=== PATIENT | female | born 1960 | race Caucasian/White ===

== ENCOUNTER 2017-11-17 12:17 | Day surgery (SDC) | payer BC ==
[~2017-11-17 12:17] MED LIST: Buffered Lidocaine 0.9% SYRIN* 5 ML/SYR SYRINGE INTRADERM ONE; Bupivacaine 0.25% SDV* 30 ML ONE; DiMENhydriNATE IV* 50 MG/ML VIAL IV PUSH PRN; Famotidine TAB* 20 MG PO ONE; Lidocaine 1% MPF wEPI 200,000* 30 ML SDV ONE; Morphine INJ* 2 MG/ML 1 ML CARPUJECT IV PRN; Naloxone* 0.4 MG/ML 1 ML VIAL IV PRN; PROCHLORPERAZINE INJ 5 MG/ML 2 ML VIAL IV PRN; Scopolamine 1.5 mg* PATCH TRANSDERM PRN; fentaNYL* 50 MCG/ML 2 ML VIAL (100 MCG VIAL) IV PRN; oxyCODONE/Acetamin 5/325 MG* TAB PO PRN
[2017-11-17] MEDS ORDERED: ceFAZolin 2 GM PREMIX (*) 2 GM/50 ML BAG IVPB ONE (13:03)
[2017-11-17] MEDS ORDERED: Famotidine TAB* 20 MG ONE (13:03)
[2017-11-17] MEDS ORDERED: Atracurium* 10 MG/ML 10 ML VIAL ONE (13:27)
[2017-11-17] MEDS ORDERED: fentaNYL* 50 MCG/ML 2 ML VIAL (100 MCG VIAL) ONE (13:27)
[2017-11-17] MEDS ORDERED: Midazolam* 1 MG/ML 5 ML VIAL (5 MG) ONE (13:27)
[2017-11-17] MEDS ORDERED: Propofol* 10 MG/ML 20 ML BTL IV PUSH ONE (15:14)
[2017-11-17] MEDS ORDERED: Neostigmine Methylsulfate* 1 MG/ML 10 ML VIAL (1 mg/ml) ONE (15:14)
[2017-11-17] MEDS ORDERED: Ondansetron INJ* 2 MG/ML VIAL ONE (15:14)
[2017-11-17] MEDS ORDERED: Glycopyrrolate IV* 0.2 MG/ML 1 ML VIAL ONE (15:14)
[2017-11-17] MEDS ORDERED: Lidocaine 2% PF * 5 ML VIAL ONE (15:14)
[2017-11-17] MEDS ORDERED: Dexamethasone IV* 4 MG/ML 1 ML (4 MG) ONE (15:14)
[2017-11-17] MEDS ORDERED: EPHEDrine (Pressors)* 50 MG/ML VIAL ONE (15:24)
[2017-11-17] MEDS ORDERED: Ketorolac INJ* 30 MG/ML 1 ML VIAL ONE (15:24)
[2017-11-17] MEDS ORDERED: Labetalol IV* 5 MG/ML 20 ML VIAL ONE (15:46)
[2017-11-17] MEDS ORDERED: Acetaminophen TAB* 325 MG PO ONE (16:10)
[2017-11-17 16:37] VITALS: BP 156/86
[2017-11-17] MEDS ORDERED: Acetaminophen TAB* 325 MG ONE (17:00)
--- NOTE | 2017-11-17 23:05 | OP ---
CC: Prince Soto MD; Theo Aguilar MD; Shannan Dugan MD OPERATIVE REPORT: DATE OF OPERATION: 11/17/17 DATE OF : 62 SURGEON: Prince Soto MD MEDIA MONITOR: None. ANESTHESIOLOGIST: Dr. Jacob. ANESTHESIA: General anesthetic, local infiltration. PRE-OP DIAGNOSIS: Liver mass. POST-OP DIAGNOSIS: Liver mass. OPERATIVE PROCEDURE: Laparoscopic wedge biopsy of liver mass. DESCRIPTION OF PROCEDURE: The patient was supine on the operating table. After adequate general ane sthetic, compression stockings, Can Hugger warmer, and intravenous antibiotics, the abdomen was prep ped with antiseptic, draped in a sterile fashion. Local infiltrative anesthesia was administered. S mall umbilical incision was created. Blunt port cannula was placed. Insufflation was carried out wi th carbon dioxide. Additional cannulae; 5 mm left upper quadrant and left mid abdomen were placed wi th small stab wounds under direct vision and the lesion was readily identified in the left lateral se gment right at the free edge. It was relatively flat, slightly firm, but actually did not look typic al for metastatic adenocarcinoma. It was felt that a wedge excision was basically as easy as taking a chunk of the lesion. It was felt that a Jonah-Cut needle would be difficult given how thin the liver was in this location. Therefore, a combination of cautery and LigaSure was used to come around the lesion. It was removed in its entirety and sent fresh to pathology. Hemostasis was excellent. The cannulae removed. Pneumoperitoneum allowed to escape. Umbilical fascia was closed with 0 Vicryl and skin with 5-0 Vicryl followed by Steri-Strips. She tolerated the procedure well, was awakened and br ought to Recovery in good condition. There were no complications, no drains. Pathologic specimen is liver biopsy. Sponge and instrument counts were correct. Estimated blood loss is less than 20 mL. [id number]/[facility] #: [id number]
[2017-11-20] MEDS ORDERED: Scopolamine PATCH Remove* 1 NOTE MISC PATCH OFF ONE (05:53)
== END 2017-11-17 17:26 | disposition home or self-care (01) ==
LOC: OR 12:17
PROVIDERS: ATTEND Surgery
DX: R16.0 Hepatomegaly, not elsewhere classified (principal); C50.412 Malignant neoplasm of upper-outer quadrant of left female breast; K76.89 Other specified diseases of liver; Z87.891 Personal history of nicotine dependence; Z85.828 Personal history of other malignant neoplasm of skin
CPT/HCPCS: 88307; 88331; A9270-GY; J0690; J1100; J1885; J2001; J2250; J2405; J2704; J2710; J3010

== ENCOUNTER 2018-01-06 10:37 | Day surgery (SDC) | payer BC ==
[~2018-01-06 10:37] MED LIST changes: -Bupivacaine 0.25% SDV* 30 ML ONE; -DiMENhydriNATE IV* 50 MG/ML VIAL IV PUSH PRN; +Famotidine IV* 10 MG/ML 2 ML (20 mg) IV ONE; -Famotidine TAB* 20 MG PO ONE; -Lidocaine 1% MPF wEPI 200,000* 30 ML SDV ONE; +Metoclopramide TAB* 10 MG PO ONE; -Morphine INJ* 2 MG/ML 1 ML CARPUJECT IV PRN; -Naloxone* 0.4 MG/ML 1 ML VIAL IV PRN; -PROCHLORPERAZINE INJ 5 MG/ML 2 ML VIAL IV PRN; -Scopolamine 1.5 mg* PATCH TRANSDERM PRN; -fentaNYL* 50 MCG/ML 2 ML VIAL (100 MCG VIAL) IV PRN; -oxyCODONE/Acetamin 5/325 MG* TAB PO PRN
[2018-01-06] MEDS ORDERED: Metoclopramide TAB* 10 MG ONE (10:42)
[2018-01-06] MEDS ORDERED: Famotidine IV* 10 MG/ML 2 ML (20 mg) ONE (10:42)
[2018-01-06] MEDS ORDERED: ceFAZolin 2 GM PREMIX (*) 2 GM/50 ML BAG IVPB ONE (10:42)
[2018-01-06] MEDS ORDERED: Lidocaine 1% INJ* 10 MG/ML 30 ML SDV ONE (12:06)
[2018-01-06] MEDS ORDERED: Midazolam* 1 MG/ML 10 ML VIAL (10 MG) ONE (12:28)
[2018-01-06] MEDS ORDERED: fentaNYL* 50 MCG/ML 2 ML VIAL (100 MCG VIAL) ONE (12:28)
[2018-01-06] MEDS ORDERED: Dexamethasone IV* 4 MG/ML 1 ML (4 MG) ONE (12:28)
[2018-01-06] MEDS ORDERED: Ondansetron ODT TAB* 4 MG ONE (12:28)
[2018-01-06] MEDS ORDERED: Lidocaine 2% PF * 5 ML VIAL ONE (12:28)
[2018-01-06] MEDS ORDERED: Propofol* 10 MG/ML 20 ML BTL IV PUSH ONE (12:28)
[2018-01-06 12:38] LABS: Hematocrit 31 % (35-47); Hemoglobin 10.4 g/dl (12.0-16.0); Mean Corpuscular HGB Conc 33 g/dl (31-36); Mean Corpuscular Hemoglobin 30 pg (27-31); Mean Corpuscular Volume 90 fL (80-97); Platelet Count 206 10^3/ul (150-450); Red Blood Count 3.46 10^6/ul (4.0-5.4); Red Cell Distribution Width 14 % (10.5-15); White Blood Count 36.5 10^3/ul (3.5-10.8)
[2018-01-06 12:44] LABS: ABS Basophils 0.1 10^3/ul (0-0.2); ABS Eosinophils 0 10^3/ul (0-0.6); ABS Neutrophils 32.4 10^3/ul (1.5-7.7)
[2018-01-06 13:15] LABS: Monocytes % 4 % (0-7)
[2018-01-06] MEDS ORDERED: KETAMINE HCL* 50 MG/ML 10 ML VIAL ONE (14:18)
[2018-01-06] MEDS ORDERED: Ibuprofen TAB* 600 MG PO ONE (15:00)
[2018-01-06] MEDS ORDERED: Ondansetron ODT TAB* 4 MG PO PRN (15:05)
[2018-01-06] MEDS ORDERED: oxyCODONE/Acetamin 5/325 MG* TAB PO PRN (15:05)
[2018-01-06] MEDS ORDERED: fentaNYL* 50 MCG/ML 2 ML VIAL (100 MCG VIAL) IV PRN (15:05)
[2018-01-06] MEDS ORDERED: Naloxone* 0.4 MG/ML 1 ML VIAL IV PRN (15:05)
[2018-01-06 15:14] VITALS: BP 117/75
--- NOTE | 2018-01-06 16:03 | RAD ---
CPT II Codes: G9500 INDICATION: PowerPort placement. Fluoroscopic services provided for referring physician. 2 spot image demonstrates placement of a catheter in the superior vena cava. IMPRESSION: Fluoroscopic services provided for referring physician.
--- NOTE | 2018-01-06 16:42 | RAD ---
Indication: Port placement. Single frontal view of the chest performed at 1526 hours was reviewed. Comparison is made with previous exam dated January 03, 2018. Central line is in place. No pneumothorax is noted. Lungs are clear. IMPRESSION: POWERPORT IN PLACE. NO ACTIVE DISEASE IS IDENTIFIED.
--- NOTE | 2018-01-07 10:29 | OP ---
CC: Dr. Shannan Dugan * DATE OF OPERATION: 01/06/18 - [facility] DATE OF : 62. SURGEON: Prince Soto M.D. FITNESS MANAGER: None. ANESTHESIOLOGIST: Dr. Charlton. ANESTHESIA: LMAC anesthesia. PRE-OP DIAGNOSIS: Carcinoma of the breast. POST-OP DIAGNOSIS: Carcinoma of the breast. OPERATIVE PROCEDURE: Placement of right subclavian 8-Georgian port. DESCRIPTION OF PROCEDURE: The patient was supine on the operating room table. After adequate intravenous sedation, compression stockings, Can Hugger warmer, and intravenous antibiotics, the right chest was prepped with antiseptic, draped in a sterile fashion. Local infiltrative anesthesia was administered. Approximately 3 cm incision was created. Inferior pocket is created and subclavian venipuncture was carried out. Guidewire was passed under fluoroscopic guidance. Catheter passed through the peel-away introducer, measured and cut at 22 cm, attached to the port, which was sutured in the pocket with 2-0 Prolene. Pocket was closed with 3-0 and 5-0 Vicryl followed by Steri-Strips. The port had good blood return. It was flushed with saline solution and heparinized solution. She tolerated the procedure well and was awakened and brought to recovery in good condition. No complications. No drains. No pathologic specimens. Sponge and instruments counts correct. Estimated blood loss 10 mL. [id number]/[facility] #: [id number] MTDD
== END 2018-01-06 15:50 | disposition home or self-care (01) ==
LOC: OR 10:37
PROVIDERS: ATTEND Surgery
DX: C50.412 Malignant neoplasm of upper-outer quadrant of left female breast (principal); K76.89 Other specified diseases of liver; D70.9 Neutropenia, unspecified; M19.90 Unspecified osteoarthritis, unspecified site; R11.0 Nausea
CPT/HCPCS: 36415; 71045; 76000; 85025; 85060; A9270-GY; C1788; J0690; J1100; J1642; J2250; J2704; J3010